=== PATIENT | male | born 1970 | race Caucasian/White ===

== ENCOUNTER 2016-09-13 14:13 | Emergency (ER) | payer OTHER ==
[~2016-09-13] VITALS: Ht 180.3 cm; Wt 103.6 kg
[~2016-09-13 14:13] MED LIST: GLUCTAB PO; LISI40TA PO
[2016-09-13 14:20] VITALS: BP 144/94; PULSE 91; RESP 16; TEMP 98.7; O2SAT 96
[2016-09-13] MEDS ORDERED: METF500T4 PO (14:43)
[2016-09-13] MEDS ORDERED: TETANUS/DIPHTHERIA TOXOID ADULT 0.5 ML VIAL IM ONE (14:45)
--- NOTE | 2016-09-13 15:10 | PD ---
HPI Chief Complaint: Laceration/Skin Injury Time Seen by Provider: 14:59 Travel History International Travel<30 days: No Contact w/Intl Traveler<30days: No Traveled to known affect area: No History of Present Illness HPI Patient 45-year-old male presents emergency department after a plank of wood fell and hit him on top of the head. Patient states has not had a loss of consciousness headache focalized weakness visual difficulty. States he had a little bleeding initially after the event but it is stopped. States his last tetanus was over 5 years ago. Denies workman's comp injury. Denies any other injuries, denies any neck pain shortness breath chest pain abdominal pain nausea vomiting extremity pain. PFSH Past Medical History Hx Anticoagulant Therapy: No Anxiety: Yes Depression: Yes Cardiovascular Problems: Yes (hx of htn but states resolved) COPD: Yes (?) Diabetes: Yes Patient Takes Glucophage: Yes Hypertension: Yes Psychiatric: Yes Respiratory: Yes (copd) Immunizations Current: Yes Tetanus Vaccination: < 5 Years Past Surgical History Tonsillectomy: Yes Social History Alcohol Use: No Tobacco Use: Yes (1.5 pack daily) Substance Use: No Allergies-Medications (Allergen,Severity, Reaction): Coded Allergies: No Known Allergies (Verified , 09/13/16) Reported Meds & Prescriptions Reported Meds & Active Scripts Active Reported Metformin ER (Metformin HCl) 500 Mg Myranda 500 Mg PO DAILY With evening meal Review of Systems Except as stated in HPI: all other systems reviewed are Neg Physical Exam Narrative GENERAL: Well-nourished, well-developed patient. In no obvious distress. SKIN: Is descending a laceration on the right parietal scalp. Bleeding intact, partial-thickness, HEAD: Normocephalic, no raccoons eyes no bone signs. EYES: No scleral icterus. No injection or drainage. NECK: Supple, trachea midline. No JVD or lymphadenopathy. No midline cervical spine tenderness, full nontender range of motion. CARDIOVASCULAR: Regular rate and rhythm without murmurs, gallops, or rubs. RESPIRATORY: Breath sounds equal bilaterally. No accessory muscle use. GASTROINTESTINAL: Abdomen soft, non-tender, nondistended. MUSCULOSKELETAL: No cyanosis, or edema. Extremities are atraumatic, no midline CT or L-spine tenderness. BACK: Nontender without obvious deformity. No CVA tenderness. Data Data Last Documented VS Vital Signs Date Time Temp Pulse Resp B/P Pulse Ox O2 Delivery O2 Flow Rate FiO2 09/13/16 14:20 98.7 91 16 144/94 96 Orders Tetanus/Diphtheria Tox Adult (Tetanus/Di (09/13/16 14:45) MDM Medical Decision Making Medical Screen Exam Complete: Yes Emergency Medical Condition: Yes Differential Diagnosis Closed head injury, laceration, tetanus status up-to-date. Narrative Course Patient roomed in emergency department, CT head and C-spine are not indicated as patient is clear blow-by Nexus and Swedish CT head rules. His wound was approximated with jza, tetanus was updated. He stable for discharge, no indication further workup at this time. Discussed return to ED criteria return in 5-7 days for suture removal. Procedures Procedure Narrative LACERATION LOCATION: Right parietal scalp LENGTH: 2cm NUMBER OF STITCHES/JAZ: 2 REPAIR: Patient was offered anesthetization and declined. The wound was copiously irrigated with saline and explored without evidence of foreign body, tendon injury or neurovascular injury. The wound was closed using 2 x jaz. This was a single layer repair. A sterile dressing was applied. The patient was advised to keep the dressing clean and dry. Patient tolerated the procedure well. Diagnosis Primary Impression: Scalp laceration Additional Impression: Closed head injury Patient Instructions: General Instructions, Laceration (DC) Additional Instructions: Return to ED in 5-7 days for staple removal. Disposition: 01 DISCHARGE HOME Condition: Stable Faraz Ruelsa MD Sep 13, 2016 15:10
== END 2016-09-13 15:20 | disposition home or self-care (01) ==
LOC: PHEFT 14:13
DX: S01.01XA Laceration without foreign body of scalp, initial encounter (principal); S09.90XA Unspecified injury of head, initial encounter; E11.9 Type 2 diabetes mellitus without complications; I10 Essential (primary) hypertension; F17.200 Nicotine dependence, unspecified, uncomplicated; W20.8XXA Other cause of strike by thrown, projected or falling object, initial encounter; Z23 Encounter for immunization; Z79.84 Long term (current) use of oral hypoglycemic drugs; Z86.59 Personal history of other mental and behavioral disorders; Z86.79 Personal history of other diseases of the circulatory system; Z87.09 Personal history of other diseases of the respiratory system
CPT/HCPCS: 12001; 90471; 90714

== ENCOUNTER 2016-12-05 17:16 | Inpatient (IN) | payer OTHER ==
[~2016-12-05] VITALS: Ht 182.9 cm; Wt 100.0 kg
[~2016-12-05 17:16] MED LIST changes: -GLUCTAB PO; -LISI40TA PO; +METF500T4 PO
[2016-12-05 17:18] VITALS: BP 130/75; PULSE 94; RESP 16; TEMP 98.8; O2SAT 95
[2016-12-05] MEDS ORDERED: SODIUM CHLOR 0.9% 1000 ML INJ 1,000 ML IV SCH ×2 (17:51)
[2016-12-05 17:55] VITALS: BP 151/83; PULSE 95; RESP 18; O2SAT 97
--- NOTE | 2016-12-05 17:59 | PD ---
HPI Chief Complaint: Skin Problem Time Seen by Provider: 17:50 Travel History International Travel<30 days: No Contact w/Intl Traveler<30days: No Traveled to known affect area: No History of Present Illness HPI 46-year-old male with history of diabetes presents for evaluation of right foot infection. He reports that he developed a "bunion" from new shoes along the lateral aspect of his right foot 1-2 weeks ago. He then developed some increased soft tissue swelling and pain along the lateral aspect of the right foot. He was seen by his primary care physician, Dr. Lindsay, 5 days ago and started on Keflex. He was referred to forming process worker Dr. Bryan who he saw today. He was sent here by Dr. Bryan for admission for IV vancomycin and Zosyn, MRI of the foot, he would like the patient admitted to medicine and he will consult. The patient reports generalized right foot and leg pain, aching, constant, worse with movement. He endorses myalgias at home but he has not checked his temperature. Denies chest pain, shortness of breath, nausea, vomiting, abdominal pain. He has no other complaints at this time. PFSH Past Medical History Hx Anticoagulant Therapy: No Anxiety: Yes Depression: Yes Cardiovascular Problems: Yes (hx of htn but states resolved) COPD: Yes (?) Diabetes: Yes Patient Takes Glucophage: Yes Hypertension: Yes Psychiatric: Yes Respiratory: Yes (copd) Immunizations Current: Yes Past Surgical History Tonsillectomy: Yes Social History Alcohol Use: No Tobacco Use: Yes (1.5 pack daily) Substance Use: No Allergies-Medications (Allergen,Severity, Reaction): Coded Allergies: No Known Allergies (Verified , 09/13/16) Reported Meds & Prescriptions Reported Meds & Active Scripts Active Reported Keflex (Cephalexin) 500 Mg Capsule 500 Mg PO Q6H Metformin (Metformin HCl) 1,000 Mg Tab 1,000 Mg PO BIDPC Review of Systems Except as stated in HPI: all other systems reviewed are Neg Physical Exam Narrative GENERAL: Well-developed well-nourished male in no acute distress SKIN: Warm and dry. There is some soft tissue swelling and fluctuance along the lateral aspect of the right foot. There is some surrounding cellulitic changes that extends up to the right ankle. There is some generalized edema of the right pretibial region. HEAD: Atraumatic. Normocephalic. EYES: Pupils equal and round. No scleral icterus. No injection or drainage. ENT: No nasal bleeding or discharge. Mucous membranes pink and moist. NECK: Trachea midline. No JVD. CARDIOVASCULAR: Regular rate and rhythm. No murmur appreciated. RESPIRATORY: No accessory muscle use. Clear to auscultation. Breath sounds equal bilaterally. GASTROINTESTINAL: Abdomen soft, non-tender, nondistended. Hepatic and splenic margins not palpable. MUSCULOSKELETAL: Skin as noted above with generalized tenderness to palpation of the right foot and ankle. Dorsalis pedis pulses are palpable. NEUROLOGICAL: Awake and alert. No obvious cranial nerve deficits. Motor grossly within normal limits. Normal speech. PSYCHIATRIC: Appropriate mood and affect; insight and judgment normal. Data Data Last Documented VS Vital Signs Date Time Temp Pulse Resp B/P (MAP) Pulse Ox O2 Delivery O2 Flow Rate FiO2 12/05/16 17:55 95 18 151/83 (105) 97 Room Air 12/05/16 17:18 98.8 Orders Orders Complete Blood Count With Diff (12/05/16 17:51) Comprehensive Metabolic Panel (12/05/16 17:51) Prothrombin Time / Inr (Pt) (12/05/16 17:51) Act Partial Throm Time (Ptt) (12/05/16 17:51) Lactic Acid Sepsis Protocol (12/05/16 17:51) Blood Culture (12/05/16 17:51) Ecg Monitoring (12/05/16 17:51) Iv Access Insert/Monitor (12/05/16 17:51) Oximetry (12/05/16 17:51) Oxygen Administration (12/05/16 17:51) Mri Foot W&W/O Contrast (12/05/16 ) Vancomycin Inj (Vancomycin Inj) (12/05/16 18:00) Piperacil-Tazo 4.5 Gm Premix (Zosyn 4.5 (12/05/16 18:00) Sodium Chlor 0.9% 1000 Ml Inj (Ns 1000 M (12/05/16 17:51) Sodium Chlor 0.9% 1000 Ml Inj (Ns 1000 M (12/05/16 17:51) Admit Order (Ed Use Only) (12/05/16 18:56) Consult Podiatry (12/05/16 ) Labs Laboratory Tests Test 12/05/16 17:55 12/05/16 18:00 White Blood Count 7.4 TH/MM3 Red Blood Count 4.09 MIL/MM3 Hemoglobin 14.5 GM/DL Hematocrit 41.3 % Mean Corpuscular Volume 100.9 FL Mean Corpuscular Hemoglobin 35.4 PG Mean Corpuscular Hemoglobin Concent 35.1 % Red Cell Distribution Width 12.7 % Platelet Count 220 TH/MM3 Mean Platelet Volume 8.3 FL Neutrophils (%) (Auto) 61.7 % Lymphocytes (%) (Auto) 26.1 % Monocytes (%) (Auto) 9.2 % Eosinophils (%) (Auto) 1.8 % Basophils (%) (Auto) 1.2 % Neutrophils # (Auto) 4.6 TH/MM3 Lymphocytes # (Auto) 1.9 TH/MM3 Monocytes # (Auto) 0.7 TH/MM3 Eosinophils # (Auto) 0.1 TH/MM3 Basophils # (Auto) 0.1 TH/MM3 CBC Comment DIFF FINAL Differential Comment Prothrombin Time 10.4 SEC Prothromb Time International Ratio 0.9 RATIO Activated Partial Thromboplast Time 27.3 SEC Blood Urea Nitrogen 6 MG/DL Creatinine 0.60 MG/DL Random Glucose 208 MG/DL Total Protein 7.8 GM/DL Albumin 3.4 GM/DL Calcium Level 9.1 MG/DL Alkaline Phosphatase 80 U/L Aspartate Amino Transf (AST/SGOT) 27 U/L Alanine Aminotransferase (ALT/SGPT) 28 U/L Total Bilirubin 0.2 MG/DL Sodium Level 135 MEQ/L Potassium Level 3.5 MEQ/L Chloride Level 98 MEQ/L Carbon Dioxide Level 26.1 MEQ/L Anion Gap 11 MEQ/L Estimat Glomerular Filtration Rate 144 ML/MIN Lactic Acid Level 2.0 mmol/L [facility] Medical Decision Making Medical Screen Exam Complete: Yes Emergency Medical Condition: Yes Medical Record Reviewed: Yes Differential Diagnosis Cellulitis, abscess, osteomyelitis, necrotizing fasciitis, DVT Narrative Course The patient will be placed on ECG monitoring pulse oximetry. IV vancomycin, Zosyn, normal saline will be initiated. Lab work, blood cultures, MRI of the right foot with contrast has been ordered. Discussed the case with Dr. Godoy who is agreeable with admission to Dr. Ferrell. Radiologist requests an x-ray of the right foot as well so this has been ordered. Diagnosis Primary Impression: Cellulitis of right foot Admitting Information Admitting Physician Requests: Admit Jo,Dell P. PA Dec 05, 2016 17:59
[2016-12-05] MEDS ORDERED: VANCOMYCIN INJ 1,000 MG in SODIUM CHLOR 0.9% 250 ML INJ 250 ML IV ONE (18:00)
[2016-12-05] MEDS ORDERED: PIPERACIL-TAZO 4.5 GM PREMIX 100 ML IV ONE (18:00)
[2016-12-05] MEDS ORDERED: CEPH-460 PO (18:07)
[2016-12-05] MEDS ORDERED: METF1000 PO (18:07)
[2016-12-05 18:40] LABS: AUTOMATED NEUTROPHIL # 4.6 TH/MM3 (1.8-7.7); BASOPHIL # 0.1 TH/MM3 (0-0.2); BASOPHIL % 1.2 % (0.0-2.0); EOSINOPHIL # 0.1 TH/MM3 (0-0.4); EOSINOPHIL % 1.8 % (0.0-4.0); HEMATOCRIT 41.3 % (39.0-51.0); HEMO FLAGS DIFF FINAL; LYMPH % 26.1 % (9.0-44.0); LYMPHOCYTE # 1.9 TH/MM3 (1.0-4.8); MEAN CELL VOLUME 100.9 FL (80.0-100.0); MEAN CORPUSCULAR HEMOGLOBIN 35.4 PG (27.0-34.0); MEAN CORPUSCULAR HGB CONC 35.1 % (32.0-36.0); MONO % 9.2 % (0.0-8.0); NEUT % 61.7 % (16.0-70.0); PLATELET COUNT 220 TH/MM3 (150-450); RED BLOOD COUNT 4.09 MIL/MM3 (4.50-5.90); RED CELL DISTRIBUTION WIDTH 12.7 % (11.6-17.2); WHITE BLOOD COUNT 7.4 TH/MM3 (4.0-11.0)
[2016-12-05 18:56] LABS: ALT (GPT) 28 U/L (12-78)
[2016-12-05 18:58] LABS: ALKALINE PHOSPHATASE 80 U/L (45-117); TOTAL BILIRUBIN ADULT 0.2 MG/DL (0.2-1.0)
[2016-12-05 19:04] LABS: APTT (PATIENT) 27.3 SEC (24.3-30.1); INTERNATIONAL NORMALIZED RATIO 0.9 RATIO; PROTHROMBIN TIME - PATIENT 10.4 SEC (9.8-11.6)
[2016-12-05 19:05] LABS: ANION GAP 11 MEQ/L (5-15); AST (GOT) 27 U/L (15-37); BICARBONATE 26.1 MEQ/L (21.0-32.0); BLOOD UREA NITROGEN 6 MG/DL (7-18); CHLORIDE 98 MEQ/L (98-107); GLOMERULAR FILTRATION RATE 144 ML/MIN (>89); POTASSIUM 3.5 MEQ/L (3.5-5.1); SODIUM (NA) 135 MEQ/L (136-145)
[2016-12-05 19:13] VITALS: BP 123/68; PULSE 82; RESP 16; O2SAT 96
[2016-12-05] MEDS ORDERED: GADODIAMIDE PF 287 MG/ML 20 ML VIAL (for RAD MRI) IV PUSH ONE (20:11)
[2016-12-05] MEDS ORDERED: SODIUM CHLORIDE 0.9% FLUSH 10 ML FLUSH IV FLUSH PRN (20:15)
[2016-12-05] MEDS ORDERED: MAGNESIUM HYDROXIDE SUSP 30 ML CUP PO PRN (20:15)
[2016-12-05] MEDS ORDERED: LACTULOSE SYRUP 20 GM/30 ML CUP PO PRN (20:15)
[2016-12-05] MEDS ORDERED: SENNOSIDES 8.6 MG TAB PO PRN (20:15)
[2016-12-05] MEDS ORDERED: ACETAMINOPHEN 325 MG TAB PO PRN (20:15)
[2016-12-05] MEDS ORDERED: MORPHINE SULFATE 4 MG/ML INJ IV PUSH PRN (20:15)
[2016-12-05] MEDS ORDERED: NALOXONE HCL 0.4 MG/ML AMP IV PUSH PRN (20:15)
[2016-12-05] MEDS ORDERED: BISACODYL 10 MG SUPP RECTAL PRN (20:15)
--- NOTE | 2016-12-05 20:28 | RADRPT ---
EXAM DATE/TIME: 12/05/2016 20:12 [facility] COMPARISON: No previous studies available for comparison. INDICATIONS : Right foot pain and swelling. MEDICAL HISTORY : None. SURGICAL HISTORY : None. ENCOUNTER: Initial ACUITY: 3 days PAIN SCORE: 10/10 LOCATION: Right lateral foot. FINDINGS: Extensive soft tissue swelling is present. There is no bony destruction or periosteal reaction to sug gest osteomyelitis. There is no evidence of acute fracture. Bony mineralization is normal. There is a possible foreign body at at the base of the fifth metatarsal measuring 3 mm. CONCLUSION: 1. No plain film findings of osteomyelitis. If there is necessity for further evaluation contrast-enh anced MRI is recommended. 2. Foreign body as above Peter Jeffers MD on December 05, 2016 at 20:25 Board Certified Radiologist. This report was verified electronically.
[2016-12-05] MEDS ORDERED: GLUCAGON 1 MG/ML VIAL OTHER PRN (20:30)
[2016-12-05] MEDS ORDERED: DEXTROSE 50% IN WATER 50 ML VIAL(D50) IV PUSH PRN (20:30)
[2016-12-05] MEDS ORDERED: Vancomycin Consult Pharmacy 1 EA OTHER SCH (20:30)
--- NOTE | 2016-12-05 20:34 | HHI.HP ---
HPI Service [facility] Hospitalists Primary Care Physician Chino Lindsay MD Admission Diagnosis right foot cellulitis failed outpatient therapy Chief Complaint: sent by podiatry for admit Travel History International Travel<30 Days: No Contact w/Intl Traveler <30 Da: No Traveled to Known Affected Are: No History of Present Illness HPI 46-year-old male with history of diabetes presents for evaluation of right foot infection. He reports that he developed a "bunion" from new shoes along the lateral aspect of his right foot 1-2 weeks ago. He then developed some increased soft tissue swelling and pain along the lateral aspect of the right foot. He was seen by his primary care physician, Dr. Lindsay, 5 days ago and started on Keflex. He was referred to tourist camp attendant Dr. Bryan who he saw today. He was sent here by Dr. Bryan for admission for IV vancomycin and Zosyn, MRI of the foot, podiatry wanted patient admitted to medicine and he will consult. The patient reports generalized right foot and leg pain, aching, constant, worse with movement. He has had myalgias at home . Denies chest pain , shortness of breath, nausea, vomiting, abdominal pain. He has no other complaints at this time. Review of Systems Musculoskeletal: COMPLAINS OF: Joint Swelling Past Family Social History Past Medical History anxiety,depression,copd,dm,hypertension Past Surgical History tonsil Reported Medications keflex ,metformin 1000 bid Allergies: Coded Allergies: No Known Allergies (Verified , 09/13/16) Social History smokes 1 1/2 ppd Physical Exam Vital Signs Vital Signs Date Time Temp Pulse Resp B/P (MAP) Pulse Ox O2 Delivery O2 Flow Rate FiO2 12/05/16 19:13 82 16 123/68 (86) 96 Room Air 12/05/16 17:55 95 18 151/83 (105) 97 Room Air 12/05/16 17:55 96 Room Air 12/05/16 17:18 98.8 94 16 130/75 (93) 95 Physical Exam GENERAL: This is a well-nourished, well-developed patient, in no apparent distress. SKIN: No rashes, ecchymoses or lesions. Soft tissue swelling and fluctance lateral aspect rt foot cellulitc change's rt ankle and edema rt pre tibular HEAD: Atraumatic. Normocephalic. No temporal or scalp tenderness. EYES: Pupils equal round and reactive. Extraocular motions intact. No scleral icterus. No injection or drainage. ENT: Nose without bleeding, purulent drainage or septal hematoma. Throat without erythema, tonsillar hypertrophy or exudate. Uvula midline. Airway patent. NECK: Trachea midline. No JVD or lymphadenopathy. Supple, nontender, no meningeal signs. CARDIOVASCULAR: Regular rate and rhythm without murmurs, gallops, or rubs. RESPIRATORY: Clear to auscultation. Breath sounds equal bilaterally. No wheezes , rales, or rhonchi. GASTROINTESTINAL: Abdomen soft, non-tender, nondistended. No hepato-splenomegaly , or palpable masses. No guarding. MUSCULOSKELETAL: Extremities without clubbing, cyanosis, or edema. joint tenderness, effusion, or edema noted. No calf tenderness. Negative Homans sign bilaterally. NEUROLOGICAL: Awake and alert. Cranial nerves II through XII intact. Motor and sensory grossly within normal limits. Five out of 5 muscle strength in all muscle groups. Normal speech. Laboratory Laboratory Tests Test 12/05/16 17:55 12/05/16 18:00 White Blood Count 7.4 Red Blood Count 4.09 Hemoglobin 14.5 Hematocrit 41.3 Mean Corpuscular Volume 100.9 Mean Corpuscular Hemoglobin 35.4 Mean Corpuscular Hemoglobin Concent 35.1 Red Cell Distribution Width 12.7 Platelet Count 220 Mean Platelet Volume 8.3 Neutrophils (%) (Auto) 61.7 Lymphocytes (%) (Auto) 26.1 Monocytes (%) (Auto) 9.2 Eosinophils (%) (Auto) 1.8 Basophils (%) (Auto) 1.2 Neutrophils # (Auto) 4.6 Lymphocytes # (Auto) 1.9 Monocytes # (Auto) 0.7 Eosinophils # (Auto) 0.1 Basophils # (Auto) 0.1 CBC Comment DIFF FINAL Differential Comment Prothrombin Time 10.4 Prothromb Time International Ratio 0.9 Activated Partial Thromboplast Time 27.3 Blood Urea Nitrogen 6 Creatinine 0.60 Random Glucose 208 Total Protein 7.8 Albumin 3.4 Calcium Level 9.1 Alkaline Phosphatase 80 Aspartate Amino Transf (AST/SGOT) 27 Alanine Aminotransferase (ALT/SGPT) 28 Total Bilirubin 0.2 Sodium Level 135 Potassium Level 3.5 Chloride Level 98 Carbon Dioxide Level 26.1 Anion Gap 11 Estimat Glomerular Filtration Rate 144 Lactic Acid Level 2.0 Date/Time Source Procedure Growth Status 12/05/16 18:00 Blood Peripheral Aerobic Blood Culture Pending Received 12/05/16 18:00 Blood Peripheral Anaerobic Blood Culture Pending Received Result Diagram: 12/05/16175412/05/161754 Course in er started on vancomycin ,Zosyn Caprini VTE Risk Assessment Caprini VTE Risk Assessment: Mod/High Risk (score >= 2) Caprini Risk Assessment Model Point Value = 1 Point Value = 2 Point Value = 3 Point Value = 5 Age 41-60 Minor surgery BMI > 25 kg/m2 Swollen legs Varicose veins or History of unexplained or recurrent spontaneous Oral contraceptives or hormone replacement Sepsis (< 1 month) Serious lung disease, including pneumonia (< 1 month) Abnormal pulmonary function Acute myocardial infarction Congestive heart failure (< 1 month) History of inflammatory bowel disease Medical patient at bed rest Age 61-74 Arthroscopic surgery Major open surgery (> 45 min) Laparoscopic surgery (> 45 min) Malignancy Confined to bed (> 72 hours) Immobilizing plaster cast Central venous access Age >= 75 History of VTE Family history of VTE Factor V Leiden Prothrombin [id number] Lupus anticoagulant Anticardiolipin antibodies Elevated serum homocysteine Heparin-induced thrombocytopenia Other congenital or acquired thrombophilia Stroke (< 1 month) Elective arthroplasty Hip, pelvis, or leg fracture Acute spinal cord injury (< 1 month) Prophylaxis Regimen Total Risk Factor Score Risk Level Prophylaxis Regimen 0-1 Low Early ambulation 2 Moderate Order ONE of the following: *Sequential Compression Device (SCD) *Heparin 5000 units SQ BID 3-4 Higher Order ONE of the following medications: *Heparin 5000 units SQ TID *Enoxaparin/Lovenox 40 mg SQ daily (WT < 150 kg, CrCl > 30 mL/min) *Enoxaparin/Lovenox 30 mg SQ daily (WT < 150 kg, CrCl > 10-29 mL/min) *Enoxaparin/Lovenox 30 mg SQ BID (WT < 150 kg, CrCl > 30 mL/min) AND/OR *Sequential Compression Device (SCD) 5 or more Highest Order ONE of the following medications: *Heparin 5000 units SQ TID (Preferred with Epidurals) *Enoxaparin/Lovenox 40 mg SQ daily (WT < 150 kg, CrCl > 30 mL/min) *Enoxaparin/Lovenox 30 mg SQ daily (WT < 150 kg, CrCl > 10-29 mL/min) *Enoxaparin/Lovenox 30 mg SQ BID (WT < 150 kg, CrCl > 30 mL/min) AND *Sequential Compression Device (SCD) Assessment and Plan Problem List: (1) Cellulitis of right foot ICD Codes: L03.115 - Cellulitis of right lower limb Status: Acute Plan: antibiotics as above mri podiatry Assessment and Plan further plan as case develops sliding scale for dm Code Status full Discussed Condition With patient Physician Certification 2 Midnight Certification Type: Admission for Inpatient Services Order for Inpatient Services The services are ordered in accordance with Medicare regulations or non- Medicare payer requirements, as applicable. In the case of services not specified as inpatient-only, they are appropriately provided as inpatient services in accordance with the 2-midnight benchmark. Estimated LOS (days): 3 3 days is the estimated time the patient will need to remain in the hospital, assuming treatment plan goals are met and no additional complications. Post-Hospital Plan: Not yet determined Charles Miranda MD Dec 05, 2016 20:34
--- NOTE | 2016-12-05 20:43 | RADRPT ---
EXAM DATE/TIME: 12/05/2016 19:30 [facility] COMPARISON: No previous studies available for comparison. INDICATIONS : Osteomyelitis. Wound on lateral side of right foot near base of fifth metatarsal. CONTRAST: 20 cc Omniscan (gadodiamide) IV MEDICAL HISTORY : Hypertension. Diabetes. SURGICAL HISTORY : Tonsillectomy. ENCOUNTER: Initial ACUITY: 1 week PAIN SCORE: 3/10 LOCATION: Right foot. TECHNIQUE: Multiplanar, multisequence MRI examination was performed without contrast and after the intravenous a dministration of gadolinium. FINDINGS: There is extensive cellulitis lateral to the base of the fifth metatarsal but no evidence of abscess or osteomyelitis. Possible foreign body seen on the plain radiographs is not identified by MRI. The l igaments and tendons are intact. CONCLUSION: 1. Cellulitis without osteomyelitis. The foreign body is not identified. CT scan could be performed t o further evaluate if clinically indicated Peter Jeffers MD on December 05, 2016 at 20:39 Board Certified Radiologist. This report was verified electronically.
[2016-12-05] MEDS: INSULIN ASPART SUPPLEMENTAL SCALE SQ SCH (21:00)
[2016-12-05] MEDS: ENOXAPARIN SODIUM 40 MG/0.4 ML SYRINGE SQ SCH (21:00)
[2016-12-05] MEDS ORDERED: VANCOMYCIN 500 MG/NS 100 ML IV ONE ×2 (21:00)
[2016-12-05] MEDS: DOCUSATE SODIUM 50 MG/SENNA 8.6 MG TAB PO SCH (21:00)
[2016-12-05 21:02] VITALS: BP 144/87; PULSE 82; RESP 18; TEMP 97.8; O2SAT 98
[2016-12-05] MEDS: SODIUM CHLORIDE 0.9% FLUSH 10 ML FLUSH IV FLUSH SCH (22:31)
[2016-12-05] MEDS: PIPERACIL-TAZO 3.375 GM PREMIX 50 ML IV SCH (23:46)
[2016-12-06 00:39] VITALS: BP 141/72; PULSE 80; RESP 20; TEMP 98.4; O2SAT 97
[2016-12-06] MEDS: VANCOMYCIN 1,500 MG/NS 500 ML IV SCH ×4 (05:38→16:56)
[2016-12-06] MEDS: PIPERACIL-TAZO 3.375 GM PREMIX 50 ML IV SCH ×3 (05:38→16:55)
[2016-12-06 07:40] LABS: AUTOMATED NEUTROPHIL # 3.6 TH/MM3 (1.8-7.7); BASOPHIL # 0.1 TH/MM3 (0-0.2); BASOPHIL % 1.1 % (0.0-2.0); EOSINOPHIL # 0.2 TH/MM3 (0-0.4); EOSINOPHIL % 2.8 % (0.0-4.0); HEMATOCRIT 41.7 % (39.0-51.0); HEMO FLAGS DIFF FINAL; LYMPH % 27.3 % (9.0-44.0); LYMPHOCYTE # 1.7 TH/MM3 (1.0-4.8); MEAN CELL VOLUME 102.4 FL (80.0-100.0); MEAN CORPUSCULAR HEMOGLOBIN 34.9 PG (27.0-34.0); MEAN CORPUSCULAR HGB CONC 34.1 % (32.0-36.0); MONO % 11.1 % (0.0-8.0); NEUT % 57.7 % (16.0-70.0); PLATELET COUNT 208 TH/MM3 (150-450); RED BLOOD COUNT 4.07 MIL/MM3 (4.50-5.90); RED CELL DISTRIBUTION WIDTH 12.9 % (11.6-17.2); WHITE BLOOD COUNT 6.2 TH/MM3 (4.0-11.0)
[2016-12-06 07:59] LABS: BICARBONATE 28.5 MEQ/L (21.0-32.0); POTASSIUM 4.1 MEQ/L (3.5-5.1)
[2016-12-06 08:00] VITALS: BP 147/88; PULSE 66; RESP 16; TEMP 98.4; O2SAT 97
[2016-12-06] MEDS: INSULIN ASPART SUPPLEMENTAL SCALE SQ SCH ×5 (08:00→20:40)
--- NOTE | 2016-12-06 08:39 | MB ---
cc: TIANNA REIS DPM DATE OF CONSULTATION 12/06/2016 REASON FOR CONSULTATION Diabetic foot infection, blister ulcer, rule out abscess right foot. HISTORY OF PRESENT ILLNESS This is a 46-year-old male who presented to my clinic after failing oral antibiotics prescribed by primary care physician. Significant redness and subjective fevers were noted in the office. Due to the severity of the cellulitis, I recommended admission and rule out deep infection. Currently, I am seeing the patient bedside. He is relating decreased pain. He feels that he is improving. PAST MEDICAL HISTORY Positive for: 1. Anxiety 2. Depression 3. COPD 4. Diabetes 5. Hypertension PAST SURGICAL HISTORY Tonsillectomy MEDICATIONS Reported outpatient medications: 1. Keflex 2. Metformin ALLERGIES NO KNOWN DRUG ALLERGIES. SOCIAL HISTORY He smokes one-to-one and a half packs of cigarettes per day. INPATIENT MEDICATIONS He is receiving vancomycin and Zosyn. Please see complete med list in chart. PHYSICAL EXAMINATION Temperature is 98.4, pulse rate is 80, respiratory rate is 20, blood pressure 141/72. The patient is sating 97% on room air. GENERAL: This is alert and oriented gentleman seen bedside exhibiting nonlabored respirations. He is verbal, appropriate. EXTREMITIES: The right lower extremities examined. There is a cellulitic line that was drawn yesterday that had coursed up to the level of the patient's ankle. The redness has now decreased below that line. There is a semi-fluctuant bulla that appears to be superficial at the base of the fifth metatarsal. There is an abductovalgus foot type with a prominent fifth metatarsal base. There is pain upon palpating this area, but there is no gas, there is no odor. Pedal pulses are palpable. Sensation intact. There is a good range of motion of digits, forefoot, hindfoot or ankle. LABORATORY FINDINGS White blood cell 6.2, hemoglobin/hematocrit 14/41, platelet count is 208. Chem-7 sodium is 138, potassium 4.1, chloride 102, CO2 28.5, BUN is 5, random glucose is 164, creatinine 0.58. Coagulation profile PT is 10.4, INR is 9. IMAGING FINDINGS Foot x-ray, there is a cellulitis without osteomyelitis. No foreign body is identified via MRI. Microbiology blood culture pending. Wound culture ordered. ASSESSMENT/PLAN Right diabetic foot infection with improving cellulitis. The plan is to cancel n.p.o. no surgery indicated. However, may need debridement over the next one to two days. Continue IV antibiotics. Continue IV antibiotics. I am instructing nurse to elevate and compress the area. Anticipate discharge hopefully in two to three days. DEBORAH Hubbard/THUY /8:20 AM /8:26 AM
[2016-12-06] MEDS: SODIUM CHLORIDE 0.9% FLUSH 10 ML FLUSH IV FLUSH SCH ×2 (09:00→20:38)
[2016-12-06] MEDS: REMOVE OLD PATCH T-DERMAL SCH (09:00)
[2016-12-06] MEDS: metFORMIN HCL 500 MG TAB PO SCH ×2 (09:06→16:56)
[2016-12-06] MEDS: NICOTINE 14 MG/24 HR PATCH T-DERMAL SCH ×2 (09:06→13:27)
[2016-12-06] MEDS: DOCUSATE SODIUM 50 MG/SENNA 8.6 MG TAB PO SCH ×2 (09:06→20:37)
[2016-12-06 12:00] VITALS: BP 134/86; PULSE 75; RESP 17; TEMP 97.2; O2SAT 98
--- NOTE | 2016-12-06 13:44 | HHI.PR ---
Subjective Remarks No new complaints. Objective Vitals Vital Signs Date Time Temp Pulse Resp B/P (MAP) Pulse Ox O2 Delivery O2 Flow Rate FiO2 12/06/16 12:00 97.2 75 17 134/86 (102) 98 12/06/16 08:00 98.4 66 16 147/88 (107) 97 12/06/16 00:39 98.4 80 20 141/72 (95) 97 12/05/16 21:19 12/05/16 21:02 97.8 82 18 144/87 (106) 98 12/05/16 19:13 82 16 123/68 (86) 96 Room Air 12/05/16 17:55 95 18 151/83 (105) 97 Room Air 12/05/16 17:55 96 Room Air 12/05/16 17:18 98.8 94 16 130/75 (93) 95 12/06/16 12/06/16 12/07/16 15:00 23:00 07:00 Intake Total 515 ml Balance 515 ml Intake IV Total 515 ml Result Diagram: 12/06/16 0553 12/06/16 0553 Imaging Last Impressions Foot X-Ray 12/05/16 0000 Signed Impressions: Service Date/Time: Monday, December 05, 2016 20:12 - CONCLUSION: 1. No plain film findings of osteomyelitis. If there is necessity for further evaluation contrast-enhanced MRI is recommended. 2. Foreign body as above Peter Jeffers MD Foot MRI 12/05/16 0000 Signed Impressions: Service Date/Time: Monday, December 05, 2016 19:30 - CONCLUSION: 1. Cellulitis without osteomyelitis. The foreign body is not identified. CT scan could be performed to further evaluate if clinically indicated Peter Jeffers MD Objective Remarks GENERAL: This is a well-nourished, well-developed patient, in no apparent distress. CARDIOVASCULAR: Regular rate and rhythm without murmurs, gallops, or rubs. RESPIRATORY: Clear to auscultation. Breath sounds equal bilaterally. No wheezes , rales, or rhonchi. GASTROINTESTINAL: Abdomen soft, non-tender, nondistended. Normal active bowel sounds MUSCULOSKELETAL: erythema and indurating at lateral aspect of right foot NEURO: Alert & Oriented x4 to person, place, time, situation. Moves all ext x4 A/P Problem List: (1) Cellulitis of right foot ICD Codes: L03.115 - Cellulitis of right lower limb Status: Acute Plan: - comgmt with Podiatry, Dr. Bryan - Case d/w Dr. Yepez (12/05/16) - MRI Right foot (12/05/16) --> cellulitis, no FB, no osteomyelitis - zosyn/vancomycin (12/05 - present) - wound cx (12/05/16) --> pending - blood Cx (12/05/16) --> pending - lovenox for DVT prophylaxis - supportive care - anticipate d/c to home in 2-3 days (2) DM2 (diabetes mellitus, type 2) ICD Codes: E11.9 - Type 2 diabetes mellitus without complications Status: Chronic Plan: - metformin on hold d/t IV contrast study - SSI Problem Qualifiers (1) DM2 (diabetes mellitus, type 2): Qualified Codes: E11.8 - Type 2 diabetes mellitus with unspecified complications Parth Ferrell DO Dec 06, 2016 13:43
[2016-12-06] MEDS ORDERED: IBUPROFEN 600 MG TAB PO PRN (15:00)
[2016-12-06 16:00] VITALS: BP 142/87; PULSE 73; RESP 18; TEMP 98.8; O2SAT 96
[2016-12-06 20:18] VITALS: BP 143/86; PULSE 77; RESP 20; TEMP 97.5; O2SAT 98
[2016-12-06] MEDS: ENOXAPARIN SODIUM 40 MG/0.4 ML SYRINGE SQ SCH (20:35)
[2016-12-07 00:03] VITALS: BP_SYST 157; BP_SYST 170; BP_DIAS 79; BP_DIAS 98; PULSE 66; PULSE 88; RESP 18; RESP 20; TEMP 96.4; TEMP 97.3; O2SAT 98
[2016-12-07] MEDS: PIPERACIL-TAZO 3.375 GM PREMIX 50 ML IV SCH ×4 (00:24→18:12)
[2016-12-07] MEDS ORDERED: PHARMACY ORDERED LAB ONE (05:45)
[2016-12-07] MEDS: VANCOMYCIN 1,500 MG/NS 500 ML IV SCH ×2 (06:43)
[2016-12-07 06:53] LABS: HEMATOCRIT 40.4 % (39.0-51.0); HEMO FLAGS DIFF FINAL; MEAN CELL VOLUME 101.3 FL (80.0-100.0); MEAN CORPUSCULAR HEMOGLOBIN 35.2 PG (27.0-34.0); MEAN CORPUSCULAR HGB CONC 34.7 % (32.0-36.0); PLATELET COUNT 195 TH/MM3 (150-450); RED BLOOD COUNT 3.99 MIL/MM3 (4.50-5.90); RED CELL DISTRIBUTION WIDTH 12.9 % (11.6-17.2); WHITE BLOOD COUNT 8.1 TH/MM3 (4.0-11.0)
[2016-12-07 06:54] LABS: AUTOMATED NEUTROPHIL # 5.8 TH/MM3 (1.8-7.7); BASOPHIL # 0.1 TH/MM3 (0-0.2); BASOPHIL % 0.9 % (0.0-2.0); EOSINOPHIL # 0.2 TH/MM3 (0-0.4); EOSINOPHIL % 2.1 % (0.0-4.0); LYMPH % 17.2 % (9.0-44.0); LYMPHOCYTE # 1.4 TH/MM3 (1.0-4.8); MONO % 8.6 % (0.0-8.0); NEUT % 71.2 % (16.0-70.0)
[2016-12-07 07:01] LABS: BICARBONATE 28.8 MEQ/L (21.0-32.0); MAGNESIUM 2.1 MG/DL (1.5-2.5); POTASSIUM 4.1 MEQ/L (3.5-5.1)
--- NOTE | 2016-12-07 07:28 | PD.POD ---
Subjective Pain score: 3 Remarks feels improved. Past Med/Surg/Social History Social History Smoking Status: Current Every Day Smoker Objective Vital Signs Vital Signs Date Time Temp Pulse Resp B/P (MAP) Pulse Ox O2 Delivery O2 Flow Rate FiO2 12/07/16 00:03 97.3 88 20 157/98 (117) 98 12/06/16 20:18 97.5 77 20 143/86 (105) 98 12/06/16 16:00 98.8 73 18 142/87 (105) 96 12/06/16 12:00 97.2 75 17 134/86 (102) 98 12/06/16 08:00 98.4 66 16 147/88 (107) 97 Coded Allergies: No Known Allergies (Verified , 09/13/16) Medications and IVs Administered Medications Medications (Trade) Dose Ordered Sig/Aiden Route PRN Reason Start Time Stop Time Status Last Admin Dose Admin Metformin HCl (Glucophage) 1,000 mg BIDPC PO 12/06/16 09:00 12/06/16 16:56 Sodium Chloride (NS Flush) 2 ml BID IV FLUSH 12/05/16 21:00 12/06/16 20:38 Enoxaparin Sodium (Lovenox Inj) 40 mg Q24H SQ 12/05/16 21:00 12/06/16 20:35 Senna/Docusate Sodium (Gogo-Colace) 1 tab BID PO 12/05/16 21:00 12/06/16 09:06 Piperacillin Sod/ Tazobactam Sod 50 ml @ 100 mls/hr Q6H IV 12/06/16 00:00 12/07/16 06:42 Insulin Aspart (NovoLOG SUPPLEMENTAL SCALE) 1 ACHS SLIDING SCALE SQ 12/05/16 21:00 12/06/16 20:40 Vancomycin HCl 1500 mg/Sodium Chloride 515 ml @ 257.5 mls/ hr Q12H IV 12/06/16 06:00 12/07/16 06:43 Nicotine (Habitrol 14 Mg Patch.24 Hr) 1 patch DAILY T-DERMAL 12/06/16 09:00 12/06/16 13:27 Other Results Laboratory Tests Test 12/05/16 17:55 12/06/16 05:53 12/07/16 06:20 White Blood Count 7.4 TH/MM3 6.2 TH/MM3 8.1 TH/MM3 Red Blood Count 4.09 MIL/MM3 4.07 MIL/MM3 3.99 MIL/MM3 Hemoglobin 14.5 GM/DL 14.2 GM/DL 14.0 GM/DL Hematocrit 41.3 % 41.7 % 40.4 % Mean Corpuscular Volume 100.9 FL 102.4 FL 101.3 FL Mean Corpuscular Hemoglobin 35.4 PG 34.9 PG 35.2 PG Mean Corpuscular Hemoglobin Concent 35.1 % 34.1 % 34.7 % Red Cell Distribution Width 12.7 % 12.9 % 12.9 % Platelet Count 220 TH/MM3 208 TH/MM3 195 TH/MM3 Mean Platelet Volume 8.3 FL 8.6 FL 8.4 FL Neutrophils (%) (Auto) 61.7 % 57.7 % 71.2 % Lymphocytes (%) (Auto) 26.1 % 27.3 % 17.2 % Monocytes (%) (Auto) 9.2 % 11.1 % 8.6 % Eosinophils (%) (Auto) 1.8 % 2.8 % 2.1 % Basophils (%) (Auto) 1.2 % 1.1 % 0.9 % Neutrophils # (Auto) 4.6 TH/MM3 3.6 TH/MM3 5.8 TH/MM3 Lymphocytes # (Auto) 1.9 TH/MM3 1.7 TH/MM3 1.4 TH/MM3 Monocytes # (Auto) 0.7 TH/MM3 0.7 TH/MM3 0.7 TH/MM3 Eosinophils # (Auto) 0.1 TH/MM3 0.2 TH/MM3 0.2 TH/MM3 Basophils # (Auto) 0.1 TH/MM3 0.1 TH/MM3 0.1 TH/MM3 CBC Comment DIFF FINAL DIFF FINAL DIFF FINAL Differential Comment Laboratory Tests Test 12/05/16 17:55 12/05/16 18:00 12/06/16 05:53 12/07/16 06:20 Blood Urea Nitrogen 6 MG/DL 5 MG/DL 8 MG/DL Creatinine 0.60 MG/DL 0.58 MG/DL 0.63 MG/DL Random Glucose 208 MG/DL 164 MG/DL 154 MG/DL Total Protein 7.8 GM/DL Albumin 3.4 GM/DL Calcium Level 9.1 MG/DL 8.8 MG/DL 8.3 MG/DL Alkaline Phosphatase 80 U/L Aspartate Amino Transf (AST/SGOT) 27 U/L Alanine Aminotransferase (ALT/SGPT) 28 U/L Total Bilirubin 0.2 MG/DL Sodium Level 135 MEQ/L 138 MEQ/L 139 MEQ/L Potassium Level 3.5 MEQ/L 4.1 MEQ/L 4.1 MEQ/L Chloride Level 98 MEQ/L 102 MEQ/L 104 MEQ/L Carbon Dioxide Level 26.1 MEQ/L 28.5 MEQ/L 28.8 MEQ/L Anion Gap 11 MEQ/L 8 MEQ/L 6 MEQ/L Estimat Glomerular Filtration Rate 144 ML/MIN 150 ML/MIN 136 ML/MIN Lactic Acid Level 2.0 mmol/L Magnesium Level 2.1 MG/DL Microbiology Date/Time Source Procedure Growth Status 12/05/16 18:00 Blood Peripheral Aerobic Blood Culture - Preliminary NO GROWTH IN 1 DAY Resulted 12/05/16 18:00 Blood Peripheral Anaerobic Blood Culture - Preliminary NO GROWTH IN 1 DAY Resulted 12/05/16 17:55 Blood Peripheral Aerobic Blood Culture - Preliminary NO GROWTH IN 1 DAY Resulted 12/05/16 17:55 Blood Peripheral Anaerobic Blood Culture - Preliminary NO GROWTH IN 1 DAY Resulted 12/06/16 09:19 Wound Foot Gram Stain - Final Resulted 12/06/16 09:19 Wound Foot Wound Culture Pending Resulted Name: TERRELL BARCENAS Age/Sex:46/M Attend Dr: Parth Ferrell DO Unit#: [id number] Status: ADM IN Location: [id number] 1734 -A Re12/05/16 : 1970 SPECIMEN #: [id number] KALINA: 12/06/16918 STATUS: RES RECD: 12/06/[address]: Chinedu Bryan DPRebeca PT ID: '[id number] BOX/PROVIDER ID: SOURCE: WOUND COPY TO: Chino Lindsay MD SPDESC: FOOT Parth Ferrell CLIENT: ORDERED: WOUND CULTURE COMMENTS: Comment: please take from the right foot blister QUERIES: Method of Collection: SWAB ACT WKST: GS 12/06/16 #2 Procedure Result Verified Site GRAM STAIN Final 12/06/16-1543 NO WBC'S SEEN RARE GRAM POSITIVE COCCI IN PAIRS Physical Exam Remarks The right lower extremities examined. Redness swelling improved. There is a collapsed bulla that appears to be superficial at the base of the fifth metatarsal. There is an abductovalgus foot type with a prominent fifth metatarsal base. There is pain upon palpating this area, but there is no gas, there is no odor. Pedal pulses are palpable. Sensation intact. There is a good range of motion of digits, forefoot, hindfoot or ankle. Assessment & Plan Diagnosis: (1) Cellulitis of right foot ICD Codes: L03.115 - Cellulitis of right lower limb Status: Acute A/P Micro pending, prefer 1-2 days longer IV ABX, anticipate DC once Cx final. Reviewed with the need for smoking cessation and better glucose control. Chinedu Bryan DPM Dec 07, 2016 07:28
[2016-12-07 08:00] VITALS: BP 142/82; PULSE 63; RESP 18; TEMP 96.6; O2SAT 97
[2016-12-07] MEDS: INSULIN ASPART SUPPLEMENTAL SCALE SQ SCH ×4 (08:00→21:13)
[2016-12-07] MEDS: DOCUSATE SODIUM 50 MG/SENNA 8.6 MG TAB PO SCH ×2 (08:16→20:29)
[2016-12-07] MEDS: metFORMIN HCL 500 MG TAB PO SCH ×2 (08:16→18:12)
[2016-12-07] MEDS: SODIUM CHLORIDE 0.9% FLUSH 10 ML FLUSH IV FLUSH SCH ×2 (08:17→20:29)
[2016-12-07] MEDS: NICOTINE 14 MG/24 HR PATCH T-DERMAL SCH (08:17)
[2016-12-07] MEDS: REMOVE OLD PATCH T-DERMAL SCH (08:17)
[2016-12-07 12:00] VITALS: BP 138/86; PULSE 71; RESP 17; TEMP 96.4; O2SAT 98
[2016-12-07 16:00] VITALS: BP 133/73; PULSE 76; RESP 17; TEMP 98.8; O2SAT 98
--- NOTE | 2016-12-07 16:23 | HHI.PR ---
Subjective Remarks Patient reports feeling well offers no specific complaints Objective Vitals Vital Signs Date Time Temp Pulse Resp B/P (MAP) Pulse Ox O2 Delivery O2 Flow Rate FiO2 12/07/16 12:00 96.4 71 17 138/86 (103) 98 12/07/16 08:00 96.6 63 18 142/82 (102) 97 12/07/16 00:03 97.3 88 20 157/98 (117) 98 12/06/16 20:18 97.5 77 20 143/86 (105) 98 12/07/16 12/07/16 12/08/16 14:59 22:59 06:59 Intake Total 615 ml Balance 615 ml IV Total 615 ml Result Diagram: 12/07/1661912/07/16619 Other Results Laboratory Tests Test 12/05/16 17:55 12/05/16 18:00 12/06/16 05:53 12/07/16 06:20 White Blood Count 7.4 TH/MM3 6.2 TH/MM3 8.1 TH/MM3 Red Blood Count 4.09 MIL/MM3 4.07 MIL/MM3 3.99 MIL/MM3 Hemoglobin 14.5 GM/DL 14.2 GM/DL 14.0 GM/DL Hematocrit 41.3 % 41.7 % 40.4 % Mean Corpuscular Volume 100.9 FL 102.4 FL 101.3 FL Mean Corpuscular Hemoglobin 35.4 PG 34.9 PG 35.2 PG Mean Corpuscular Hemoglobin Concent 35.1 % 34.1 % 34.7 % Red Cell Distribution Width 12.7 % 12.9 % 12.9 % Platelet Count 220 TH/MM3 208 TH/MM3 195 TH/MM3 Mean Platelet Volume 8.3 FL 8.6 FL 8.4 FL Neutrophils (%) (Auto) 61.7 % 57.7 % 71.2 % Lymphocytes (%) (Auto) 26.1 % 27.3 % 17.2 % Monocytes (%) (Auto) 9.2 % 11.1 % 8.6 % Eosinophils (%) (Auto) 1.8 % 2.8 % 2.1 % Basophils (%) (Auto) 1.2 % 1.1 % 0.9 % Neutrophils # (Auto) 4.6 TH/MM3 3.6 TH/MM3 5.8 TH/MM3 Lymphocytes # (Auto) 1.9 TH/MM3 1.7 TH/MM3 1.4 TH/MM3 Monocytes # (Auto) 0.7 TH/MM3 0.7 TH/MM3 0.7 TH/MM3 Eosinophils # (Auto) 0.1 TH/MM3 0.2 TH/MM3 0.2 TH/MM3 Basophils # (Auto) 0.1 TH/MM3 0.1 TH/MM3 0.1 TH/MM3 CBC Comment DIFF FINAL DIFF FINAL DIFF FINAL Differential Comment Prothrombin Time 10.4 SEC Prothromb Time International Ratio 0.9 RATIO Activated Partial Thromboplast Time 27.3 SEC Blood Urea Nitrogen 6 MG/DL 5 MG/DL 8 MG/DL Creatinine 0.60 MG/DL 0.58 MG/DL 0.63 MG/DL Random Glucose 208 MG/DL 164 MG/DL 154 MG/DL Total Protein 7.8 GM/DL Albumin 3.4 GM/DL Calcium Level 9.1 MG/DL 8.8 MG/DL 8.3 MG/DL Alkaline Phosphatase 80 U/L Aspartate Amino Transf (AST/SGOT) 27 U/L Alanine Aminotransferase (ALT/SGPT) 28 U/L Total Bilirubin 0.2 MG/DL Sodium Level 135 MEQ/L 138 MEQ/L 139 MEQ/L Potassium Level 3.5 MEQ/L 4.1 MEQ/L 4.1 MEQ/L Chloride Level 98 MEQ/L 102 MEQ/L 104 MEQ/L Carbon Dioxide Level 26.1 MEQ/L 28.5 MEQ/L 28.8 MEQ/L Anion Gap 11 MEQ/L 8 MEQ/L 6 MEQ/L Estimat Glomerular Filtration Rate 144 ML/MIN 150 ML/MIN 136 ML/MIN Lactic Acid Level 2.0 mmol/L Magnesium Level 2.1 MG/DL Vancomycin Level Trough 8.5 MCG/ML Imaging Last Impressions Foot X-Ray 12/05/16 0000 Signed Impressions: Service Date/Time: Monday, December 05, 2016 20:12 - CONCLUSION: 1. No plain film findings of osteomyelitis. If there is necessity for further evaluation contrast-enhanced MRI is recommended. 2. Foreign body as above Peter Jeffers MD Foot MRI 12/05/16 0000 Signed Impressions: Service Date/Time: Monday, December 05, 2016 19:30 - CONCLUSION: 1. Cellulitis without osteomyelitis. The foreign body is not identified. CT scan could be performed to further evaluate if clinically indicated Peter Jeffers MD Objective Remarks GENERAL: This is a well-nourished, well-developed patient, in no apparent distress. CARDIOVASCULAR: Regular rate and rhythm without murmurs, gallops, or rubs. RESPIRATORY: Clear to auscultation. Breath sounds equal bilaterally. No wheezes , rales, or rhonchi. GASTROINTESTINAL: Abdomen soft, non-tender, nondistended. Normal active bowel sounds MUSCULOSKELETAL: erythema and indurating at lateral aspect of right foot NEURO: Alert & Oriented x4 to person, place, time, situation. Moves all ext x4 A/P Problem List: (1) Cellulitis of right foot ICD Codes: L03.115 - Cellulitis of right lower limb Status: Acute Plan: - comgmt with Podiatry, Dr. Bryan - Case d/w Dr. Yepez (12/05/16) - MRI Right foot (12/05/16) --> cellulitis, no FB, no osteomyelitis - zosyn/vancomycin (12/05 - present) - wound cx (12/05/16) --> pending - blood Cx (12/05/16) --> No growth x 1 day - lovenox for DVT prophylaxis - supportive care - anticipate d/c to home in 1-2 days (2) DM2 (diabetes mellitus, type 2) ICD Codes: E11.9 - Type 2 diabetes mellitus without complications Status: Chronic Plan: - metformin resumed - SSI Assessment and Plan Patient examined. Assessment and plan formulated with Melvina Kimble PA-C. I agree with the above. Problem Qualifiers (1) DM2 (diabetes mellitus, type 2): Qualified Codes: E11.8 - Type 2 diabetes mellitus with unspecified complications Melvina Kimble Dec 07, 2016 16:23 Parth Ferrell DO Dec 11, 2016 00:00
[2016-12-07] MEDS: VANCOMYCIN INJ 1,750 MG in SODIUM CHLORID 0.9% 500 ML INJ 500 ML IV SCH (19:01)
[2016-12-07 20:14] VITALS: BP 136/76; PULSE 80; RESP 20; TEMP 97.8; O2SAT 96
[2016-12-07] MEDS: ENOXAPARIN SODIUM 40 MG/0.4 ML SYRINGE SQ SCH (20:30)
[2016-12-08 00:05] VITALS: BP 137/79; PULSE 80; RESP 20; TEMP 97.8; O2SAT 97
[2016-12-08] MEDS: PIPERACIL-TAZO 3.375 GM PREMIX 50 ML IV SCH ×2 (00:06→05:06)
[2016-12-08] MEDS: VANCOMYCIN INJ 1,750 MG in SODIUM CHLORID 0.9% 500 ML INJ 500 ML IV SCH (05:08)
--- NOTE | 2016-12-08 07:12 | PD.POD ---
Subjective Pain score: 3 Remarks feels improved. Past Med/Surg/Social History Social History Smoking Status: Current Every Day Smoker Objective Vital Signs Vital Signs Date Time Temp Pulse Resp B/P (MAP) Pulse Ox O2 Delivery O2 Flow Rate FiO2 12/08/16 00:05 97.8 80 20 137/79 (98) 97 12/07/16 20:14 97.8 80 20 136/76 (96) 96 12/07/16 16:00 98.8 76 17 133/73 (93) 98 12/07/16 12:00 96.4 71 17 138/86 (103) 98 12/07/16 08:00 96.6 63 18 142/82 (102) 97 Coded Allergies: No Known Allergies (Verified , 09/13/16) Medications and IVs Administered Medications Medications (Trade) Dose Ordered Sig/Aiden Route PRN Reason Start Time Stop Time Status Last Admin Dose Admin Metformin HCl (Glucophage) 1,000 mg BIDPC PO 12/06/16 09:00 12/07/16 18:12 Sodium Chloride (NS Flush) 2 ml BID IV FLUSH 12/05/16 21:00 12/07/16 20:29 Enoxaparin Sodium (Lovenox Inj) 40 mg Q24H SQ 12/05/16 21:00 12/07/16 20:30 Senna/Docusate Sodium (Gogo-Colace) 1 tab BID PO 12/05/16 21:00 12/07/16 08:16 Piperacillin Sod/ Tazobactam Sod 50 ml @ 100 mls/hr Q6H IV 12/06/16 00:00 12/08/16 05:06 Insulin Aspart (NovoLOG SUPPLEMENTAL SCALE) 1 ACHS SLIDING SCALE SQ 12/05/16 21:00 12/07/16 21:13 Nicotine (Habitrol 14 Mg Patch.24 Hr) 1 patch DAILY T-DERMAL 12/06/16 09:00 12/07/16 08:17 Miscellaneous Information 1 DAILY T-DERMAL 12/06/16 09:00 12/07/16 08:17 Vancomycin HCl 1750 mg/Sodium Chloride 517.5 ml @ 257.5 mls/ hr Q12H IV 12/07/16 18:00 12/08/16 05:08 Physical Exam Remarks The right lower extremities examined. Redness swelling improved. There is a collapsed bulla that appears to be superficial at the base of the fifth metatarsal. There is an abductovalgus foot type with a prominent fifth metatarsal base. There is pain upon palpating this area, but there is no gas, there is no odor. Pedal pulses are palpable. Sensation intact. There is a good range of motion of digits, forefoot, hindfoot or ankle. Assessment & Plan Diagnosis: (1) Cellulitis of right foot ICD Codes: L03.115 - Cellulitis of right lower limb Status: Acute A/P Micro results skin mukund, Bedside debridement performed, of to DC home on PO ABX , Bactrim DS if ok with medicine. Patient educated on betadine swab to wound gauze hakeem to change qd, no work and minimal walking for 3-5 days. FU Outpt see ALEAH osorio/ Chinedu Bryan DPM Dec 08, 2016 07:12
[2016-12-08] MEDS: DOCUSATE SODIUM 50 MG/SENNA 8.6 MG TAB PO SCH (07:55)
[2016-12-08] MEDS: metFORMIN HCL 500 MG TAB PO SCH (07:56)
[2016-12-08] MEDS: REMOVE OLD PATCH T-DERMAL SCH (07:56)
[2016-12-08] MEDS: INSULIN ASPART SUPPLEMENTAL SCALE SQ SCH (07:56)
[2016-12-08] MEDS: SODIUM CHLORIDE 0.9% FLUSH 10 ML FLUSH IV FLUSH SCH (07:56)
[2016-12-08] MEDS: NICOTINE 14 MG/24 HR PATCH T-DERMAL SCH (07:56)
[2016-12-08 08:00] VITALS: BP_SYST 143; PULSE 80; RESP 19; TEMP 97.7; O2SAT 98
[2016-12-08] MEDS ORDERED: BACT800T5 PO (10:31)
[2016-12-08] MEDS ORDERED: CLIN1CAP5 PO (10:34)
--- NOTE | 2016-12-08 10:59 | HHI.DS ---
Discharge Summary Admission Date Dec 05, 2016 at 18:58 Discharge Date: Dec 08, 2016 Admitting Diagnosis right foot cellulitis failed outpatient therapy (1) Cellulitis of right foot ICD Codes: L03.115 - Cellulitis of right lower limb Status: Acute (2) DM2 (diabetes mellitus, type 2) ICD Codes: E11.9 - Type 2 diabetes mellitus without complications Status: Chronic Consultants Dr. Bryan Procedures none Brief History HPI 46-year-old male with history of diabetes presents for evaluation of right foot infection. He reports that he developed a "bunion" from new shoes along the lateral aspect of his right foot 1-2 weeks ago. He then developed some increased soft tissue swelling and pain along the lateral aspect of the right foot. He was seen by his primary care physician, Dr. Lindsay, 5 days ago and started on Keflex. He was referred to carcass trimmer Dr. Bryan who he saw today. He was sent here by Dr. Bryan for admission for IV vancomycin and Zosyn, MRI of the foot, podiatry wanted patient admitted to medicine and he will consult. The patient reports generalized right foot and leg pain, aching, constant, worse with movement. He has had myalgias at home . Denies chest pain , shortness of breath, nausea, vomiting, abdominal pain. He has no other complaints at this time. CBC/BMP: 12/07/16 0620 12/07/16 0620 Significant Findings Laboratory Tests Test 12/05/16 17:55 12/05/16 18:00 12/06/16 05:53 12/07/16 06:20 Red Blood Count 4.09 MIL/MM3 (4.50-5.90) 4.07 MIL/MM3 (4.50-5.90) 3.99 MIL/MM3 (4.50-5.90) Mean Corpuscular Volume 100.9 FL (80.0-100.0) 102.4 FL (80.0-100.0) 101.3 FL (80.0-100.0) Mean Corpuscular Hemoglobin 35.4 PG (27.0-34.0) 34.9 PG (27.0-34.0) 35.2 PG (27.0-34.0) Monocytes (%) (Auto) 9.2 % (0.0-8.0) 11.1 % (0.0-8.0) 8.6 % (0.0-8.0) Blood Urea Nitrogen 6 MG/DL (7-18) 5 MG/DL (7-18) Random Glucose 208 MG/DL (74-106) 164 MG/DL (74-106) 154 MG/DL (74-106) Sodium Level 135 MEQ/L (136-145) Creatinine 0.58 MG/DL (0.60-1.30) Neutrophils (%) (Auto) 71.2 % (16.0-70.0) Calcium Level 8.3 MG/DL (8.5-10.1) Imaging Last Impressions Foot X-Ray 12/05/16 0000 Signed Impressions: Service Date/Time: Monday, December 05, 2016 20:12 - CONCLUSION: 1. No plain film findings of osteomyelitis. If there is necessity for further evaluation contrast-enhanced MRI is recommended. 2. Foreign body as above Peter Jeffers MD Foot MRI 12/05/16 0000 Signed Impressions: Service Date/Time: Monday, December 05, 2016 19:30 - CONCLUSION: 1. Cellulitis without osteomyelitis. The foreign body is not identified. CT scan could be performed to further evaluate if clinically indicated Peter Jeffers MD PE at Discharge GENERAL: This is a well-nourished, well-developed patient, in no apparent distress. CARDIOVASCULAR: Regular rate and rhythm without murmurs, gallops, or rubs. RESPIRATORY: Clear to auscultation. Breath sounds equal bilaterally. No wheezes , rales, or rhonchi. GASTROINTESTINAL: Abdomen soft, non-tender, nondistended. Normal active bowel sounds MUSCULOSKELETAL: erythema and indurating at lateral aspect of right foot NEURO: Alert & Oriented x4 to person, place, time, situation. Moves all ext x4 Hospital Course Cellulitis of right foot - comgmt with Podiatry, Dr. Bryan - Case d/w Dr. Yepez (12/05/16) - MRI Right foot (12/05/16) --> cellulitis, no FB, no osteomyelitis - zosyn/vancomycin (12/05 - present) - wound cx (12/05/16) --> pending - blood Cx (12/05/16) --> No growth x 1 day - lovenox for DVT prophylaxis - supportive care - anticipate d/c to home in 1-2 days DM2 (diabetes mellitus, type 2) - metformin resumed - SSI Pt Condition on Discharge: Stable Discharge Disposition: Discharge Home Discharge Instructions DIET: Follow Instructions for: Diabetic Diet Activities you can perform: See Additionl Instruction Other Activity Instructions: betadine swab to wound gauze hakeem to change qd, no work and minimal walking for 3-5 days. Follow up Referrals: PCP Follow-up - [address] Lindsay Podiatry - 1 Week with Chinedu Bryan DPM New Medications: Clindamycin (Clindamycin) 150 Mg Cap 450 MG PO Q8HR for Infection for 7 Days, #21 CAP 0 Refills Sulfamethoxazole-Trimethoprim (Bactrim DS) 800-160 Mg Tab 1 TAB PO BID for Infection, #14 TAB 0 Refills Continued Medications: Metformin (Metformin) 1,000 Mg Tab 1000 MG PO BIDPC for Blood Sugar Management, #60 TAB 0 Refills Additional Information Patient examined. Assessment and plan formulated with Melvina Kimble PA-C. I agree with the above. Melvina Kimble Dec 08, 2016 10:59 Parth Ferrell DO Dec 11, 2016 00:00
--- NOTE | 2016-12-08 11:01 | HHI.DCPOC ---
Discharge Care Plan Diagnosis: (1) Cellulitis of right foot (2) DM2 (diabetes mellitus, type 2) Goals to Promote Your Health * To prevent worsening of your condition and complications * To maintain your health at the optimal level Directions to Meet Your Goals Take your medications as prescribed Follow your dietary instruction Follow activity as directed Keep your appointments as scheduled Take your immunizations and boosters as scheduled If your symptoms worsen call your PCP, if no PCP go to Urgent Care Center or Emergency Room Smoking is Dangerous to Your Health. Avoid second hand smoke Call the 24-hour hour crisis hotline for domestic abuse at Melvina Kimble Dec 08, 2016 11:01 Parth Ferrell DO Dec 11, 2016 00:01
[2016-12-09] MEDS ORDERED: PHARMACY ORDERED LAB ONE (05:45)
== END 2016-12-08 12:40 | disposition home or self-care (01) | DRG 638 ==
LOC: NEPE 17:16 → NEDA 18:58 → N07A 20:52
PROVIDERS: ADMIT Hospitalist; ATTEND Hospitalist
DX: E11.628 Type 2 diabetes mellitus with other skin complications (principal); L03.115 Cellulitis of right lower limb; I10 Essential (primary) hypertension; F17.210 Nicotine dependence, cigarettes, uncomplicated; F32.9 Major depressive disorder, single episode, unspecified; F41.9 Anxiety disorder, unspecified; E11.9 Type 2 diabetes mellitus without complications; Z79.84 Long term (current) use of oral hypoglycemic drugs; J44.9 Chronic obstructive pulmonary disease, unspecified
CPT/HCPCS: 73630; 73720; 80048; 80053; 80202; 82948; 83605; 83735; 85025; 85610; 85730; 87040; 87070; 87205; 96365; 96375; A9579; J1650; J1815; J2543; J3370; J7030; J7040; J7050